=== PATIENT | male | born 1965 | race Caucasian/White ===

== ENCOUNTER 2024-01-02 08:04 | Emergency (ER) | payer MEDICAID ==
[~2024-01-02] VITALS: Ht 170.2 cm; Wt 81.6 kg
[2024-01-02 08:11] VITALS: BP 145/97; PULSE 67; RESP 18; TEMP 97.3; O2SAT 99
[2024-01-02] MEDS ORDERED: ceFAZolin 1,000 MG VIAL ONE (08:44)
[2024-01-02] MEDS: ceFAZolin 1,000 MG in DEXT 5% MINI-BAG PLUS 50 ML IV ONE (08:53)
[2024-01-02 08:58] LABS: BASOPHILS % (AUTO) 0.4 % (0.0-2.0); EOSINOPHILS # (AUTO) 0.3 K/uL (0-0.4); EOSINOPHILS % (AUTO) 2.8 % (0.0-4.0); HEMATOCRIT 46.1 % (36-52); LYMPHOCYTES % (AUTO) 18.3 % (20.5-51.1); MEAN CORPUSCULAR HEMOGLOBIN 32 pg (27-31); MEAN CORPUSCULAR HGB CONC 35 g/dL (33-37); MONOCYTES # (AUTO) 0.8 K/uL (0.8-1.0); MONOCYTES % (AUTO) 7.4 % (1.7-9.3); NEUTROPHILS # (AUTO) 7.9 K/uL (1.8-7.7); NEUTROPHILS % (AUTO) 71.1 % (42.2-75.2); PLATELET COUNT (AUTO) 207 K/uL (140-450); RED BLOOD CELL COUNT(AUTO) 4.96 MIL/uL (4.20-6.10); RED CELL DISTRIBUTION WIDTH 13.2 % (11.6-13.7); WHITE BLOOD COUNT (AUTO) 11.1 K/uL (4.8-10.8)
[2024-01-02 09:52] LABS: ANION GAP 12.7 (8-16); CALCIUM 8.8 mg/dL (8.5-10.1)
[2024-01-02 09:53] LABS: ALBUMIN 3.8 g/dL (3.4-5.0); BILIRUBIN,DIRECT 0.2 mg/dL (0.0-0.3); TOTAL BILIRUBIN 0.9 mg/dL (0.0-1.0); TOTAL PROTEIN, SERUM 7.9 g/dL (6.4-8.2)
[2024-01-02 09:54] LABS: POTASSIUM 2.7 mmol/L (3.5-5.1)
[2024-01-02] MEDS ORDERED: CEPH-588 PO (10:05)
[2024-01-02] MEDS ORDERED: POTA10TA70 PO (10:05)
[2024-01-02] MEDS: POTASSIUM CHLORIDE 10 MEQ TABER PO ONE (10:07)
[2024-01-02 10:54] VITALS: BP 137/82; PULSE 62; RESP 16; TEMP 97.3; O2SAT 97
== END 2024-01-02 11:08 | disposition home or self-care (01) ==
LOC: MED 08:04
DX: L03.116 Cellulitis of left lower limb (principal); R73.9 Hyperglycemia, unspecified; E87.6 Hypokalemia; I10 Essential (primary) hypertension; Z79.899 Other long term (current) drug therapy
CPT/HCPCS: 36415; 73630; 80048; 80076; 85025; 85651; 96365; 99284; J0690